=== PATIENT | male | born 1935 | race African-American/Black ===

== ENCOUNTER 2016-05-06 12:30 | Inpatient (IN) | payer MEDICARE ==
[~2016-05-06] VITALS: Ht 188 cm; Wt 69.7 kg
[2016-05-06] MEDS ORDERED: DEXTROSE 50% WATER 50ML SYRINGE IV ONE (12:45)
[2016-05-06] MEDS ORDERED: DEXTROSE 5% WATER 1,000 ML IV ONE (12:45)
[2016-05-06 13:00] LABS: BG BASE EXCESS -14.3 mmol/L (-2.0-2.0); BG CARBOXYHEMOGLOBIN 0.3 % (0.5-1.5); BG DEOXYHEMOGLOBIN 1.1 % (0.0-5.0); BG HCO3 ACT 11.6 mmol/L (22.0-26.0); BG METHEMOGLOBIN 0.3 % (0.0-1.5); BG OXYGEN SATURATION 98.9 % (92.0-98.5); BG OXYHEMOGLOBIN 98.3 % (94.0-97.0); BG PH 7.237 (7.350-7.450); BG PO2 187.7 mmHg (75.0-100.0); BG SAMPLE SITE RIGHT RADIAL; BG TIDAL VOLUME(mL) 450 mL; BG TOTAL HEMOGLOBIN 13.1 g/dL (12.0-18.0); BG VENT MODE VENT - A/C; BG VENT RATE 16 set
[2016-05-06 13:22] LABS: HEMATOCRIT. 36.3 % (42.0-52.0); HEMOGLOBIN. 11.7 g/dL (14.0-18.0); MEAN CORPUSCULAR HEMOGLOBIN 30.3 pg (28.0-32.0); MEAN CORPUSCULAR HGB CONC 32.3 g/dL (31.0-37.0); MEAN CORPUSCULAR VOLUME 93.7 fL (80.0-94.0); MEAN PLATELET VOLUME 7.5 fl (7.4-10.4); PLATELET 187 x1000/uL (130-400); RED BLOOD CELL COUNT 3.87 mill/uL (4.7-6.1); RED CELL DISTRIBUTION WIDTH 14.6 % (11.6-14.6); WHITE BLOOD COUNT 20.2 x1000/uL (4.5-11.0)
[2016-05-06 13:27] LABS: DIFFERENTIAL COMMENT 1
[2016-05-06 13:30] LABS: AMMONIA 18 uMol/L (<32); INR 1.6; PROTHROMBIN TIME 16.7 sec
[2016-05-06 13:35] LABS: ALANINE AMINOTRANSFERASE 57 IU/L (13-61); ALBUMIN 2.2 g/dL (3.4-5.0); ANION GAP 24; CALCIUM 7.8 mg/dL (8.5-10.1); CARBON DIOXIDE 17 mEq/L (21-32); CHLORIDE 95 mEq/L (98-107); INDEX HEMOLYSI 1 (1-3); INDEX ICTERIC 1 (1-4); INDEX LIPEMIC 1 (1-3); UREA NITROGEN BLOOD 33 mg/dL (7-21); eGFR 21 mL/min (>60)
[2016-05-06 13:36] LABS: LACTIC ACID 9.1 mmol/L (0.4-2.0)
[2016-05-06] MEDS ORDERED: SODIUM BICARBONATE 8.4% 1 MEQ/ML 50ML SYR IV ONE (13:45)
[2016-05-06] MEDS ORDERED: CEFTRIAXONE 1 G PREMIX 50 ML IV ONE (13:45)
[2016-05-06] MEDS ORDERED: AZITHROMYCIN 500 MG in DEXT 5% WATER 250 ML IV SCH (13:45)
[2016-05-06] MEDS ORDERED: ASPIRIN 300MG SUPP PR ONE (13:45)
[2016-05-06 13:48] LABS: CREATINE KINASE 2771 IU/L (39-308)
[2016-05-06 13:49] LABS: NT PRO B-TYPE NATRIURETIC PEP 54056 pg/mL (5-125)
[2016-05-06 13:59] LABS: PLATELET ESTIMATE NORMAL
[2016-05-06 17:31] VITALS: BP 82/55
[2016-05-06 17:35] VITALS: BP 82/55
[2016-05-06] MEDS: SODIUM CHLORIDE 0.9% 1,000 ML IV SCH (18:00)
[2016-05-06] MEDS ORDERED: ONDANSETRON HCL 4MG/2ML VIAL IV PRN (18:30)
[2016-05-06 20:00] VITALS: BP 91/57
[2016-05-06] MEDS ORDERED: VANCOMYCIN 1 G PREMIX 200 ML IV NR (20:00)
[2016-05-06 22:00] VITALS: BP 71/43
[2016-05-07] VITALS (34 sets, daily range): BP systolic 31–103; BP diastolic 14–88
[2016-05-07] MEDS: SODIUM CHLORIDE 0.9% 1,000 ML IV SCH (01:05)
[2016-05-07] MEDS ORDERED: PANTOPRAZOLE SODIUM 40 MG/VIAL IV SCH (09:00)
[2016-05-07] MEDS ORDERED: MORPHINE SULFATE 100 MG in DEXT 5% WATER 90 ML IV PRN (09:30)
[2016-05-07] MEDS ORDERED: MORPHINE SULFATE 4 MG/ML CPJ (NOT FOR IM USE) IV NR (09:30)
[2016-05-07] MEDS ORDERED: VANCOMYCIN 500 MG PREMIX 100 ML IV NR (16:00)
== END 2016-05-07 10:21 | disposition expired | DRG 871 ==
LOC: ER 12:44 → 5EST 15:35
PROVIDERS: ADMIT Family Medicine Adult Medicine; ATTEND Family Medicine Adult Medicine
PROC: 5A1935Z Respiratory Ventilation, Less than 24 Consecutive Hours (ICD-10-PCS; principal; 2016-05-06)
PROC: 0BH17EZ Insertion of Endotracheal Airway into Trachea, Via Natural or Artificial Opening (ICD-10-PCS; 2016-05-06)
DX: A41.9 Sepsis, unspecified organism (principal); J96.00 Acute respiratory failure, unspecified whether with hypoxia or hypercapnia; I21.4 Non-ST elevation (NSTEMI) myocardial infarction; E43 Unspecified severe protein-calorie malnutrition; J69.0 Pneumonitis due to inhalation of food and vomit; R65.21 Severe sepsis with septic shock; D68.9 Coagulation defect, unspecified; N17.9 Acute kidney failure, unspecified; M62.82 Rhabdomyolysis; Z68.1 Body mass index [BMI] 19.9 or less, adult; Z66 Do not resuscitate; I25.10 Atherosclerotic heart disease of native coronary artery without angina pectoris; F03.90 Unspecified dementia, unspecified severity, without behavioral disturbance, psychotic disturbance, mood disturbance, and anxiety; E03.9 Hypothyroidism, unspecified; D64.9 Anemia, unspecified; R62.7 Adult failure to thrive; Z51.5 Encounter for palliative care; Z86.73 Personal history of transient ischemic attack (TIA), and cerebral infarction without residual deficits
CPT/HCPCS: 31500; 36415; 36600; 71010; 80053; 82140; 82375; 82550; 82805; 82962; 83605; 83880; 84443; 84484; 85025; 85610; 86850; 86900; 93005; 96361; 96374; 96375; 99291; C9113; J0456; J0696; J2270; J3370; J3490; J7030; J7060; J7070; J7120